=== PATIENT | female | born 1950 | race Caucasian/White ===

== ENCOUNTER 2024-08-02 06:25 | Day surgery (SDC) | payer MEDICARE, OTHER ==
[~2024-08-02] VITALS: Ht 163.8 cm; Wt 80.7 kg
[~2024-08-02 06:25] MED LIST: ACETAMINOPHEN-1 EAC1 PO; BENADRYL25 MG PO; DIFLUCAN100 MG PO; FISH OIL 1,0001 EAC6 PO; FLONASE ALLERG9.9 ML NAS; MIDAZOLAM HCL 5 MG/5 ML VIAL IV PRN; MIDAZOLAM HCL 5 MG/5 ML VIAL ONE; NUCYNTA50 MG PO; SUDAFED 12-HOU120 MG PO; TURMERIC500 MG PO; VITAMIN C100 MG PO; VITAMIN D250 MCG PO; ZYRTEC10 MG PO; fentaNYL citrate 100 MCG/2 ML VIAL IV PRN; fentaNYL citrate 100 MCG/2 ML VIAL ONE
[2024-08-02 06:41] VITALS: BP 137/66
[2024-08-02] MEDS ORDERED: OMEPRAZOLE20 MG PO (06:45)
[2024-08-02] MEDS ORDERED: CALCIUM500 M1 PO (06:45)
[2024-08-02] MEDS ORDERED: IMODIUM A-1 MG/7.5 M PO (06:45)
[2024-08-02] MEDS ORDERED: TYLENOL325 MG PO (06:45)
[2024-08-02] MEDS ORDERED: METROGEL60 GM TOP (06:46)
[2024-08-02] MEDS ORDERED: LACTATED RINGER'S 1,000 ML IV SCH (07:00)
[2024-08-02] MEDS ORDERED: IBLOOD GLUCOSE TEST STRIP 1 EA TEST VI PRN (07:00)
[2024-08-02] MEDS ORDERED: LIDOCAINE HCL 1% 5 ML SDV INJ ONE (07:00)
[2024-08-02] MEDS ORDERED: fentaNYL citrate 100 MCG/2 ML VIAL ONE (07:36)
[2024-08-02] MEDS ORDERED: MIDAZOLAM HCL 2 MG/2 ML VIAL ONE (07:36)
[2024-08-02 08:22] VITALS: BP 113/60
--- NOTE | 2024-08-03 07:23 | OR ---
[facility] [address] [place], [place] [address] Signed DATE OF OPERATION: 08/02/2024 SURGEON: Hiren Perales MD PREOPERATIVE DIAGNOSES: 1. Gastroesophageal reflux disease. 2. Possible tiny hiatal hernia. 3. Irritable bowel syndrome with diarrhea. 4. Diverticulosis. 5. Small polyp last retrieval in [address] age 68 [address] Clinton Newton. POSTOPERATIVE DIAGNOSES: 1. Mild diffuse gastritis. 2. Tiny hiatal hernia. 3. GE junction at 32 cm. 4. Mild melanosis coli. 5. Minimal sigmoid diverticulosis. 6. Long redundant colon. PROCEDURES: 1. Esophagogastroduodenoscopy with CLOtest and biopsies of the duodenum and antrum. 2. Colonoscopy with random cold biopsy x2. ESTIMATED BLOOD LOSS: None. INDICATIONS: Nohemi is a -[id number] female who I have known for quite some time. I helped her with both upper and lower endoscopy back in 2013 at the age of 62. She is known to have a little acid reflux and she is taking omeprazole as needed. She is now using the omeprazole on a daily basis. She feels that was a change. She probably has a very tiny hiatal hernia. Her CLOtest had been negative. Biopsies from the stomach were negative. She also had her initial screening colonoscopy at that same time. She had little diverticulosis. We asked her to follow up in 10 years. She was not feeling well and had been to [facility] back in 2019. There was some concern that she was backed up with stool. She had been referred to the local ultrasonic hand solderer Dr. Clinton Newton. He helped her with a colonoscopy at that time. He divided a small polyp with the snare and was lost to retrieval. He therefore asked her to follow up in 5 years. She still is describing some irritable bowel syndrome with loose stool and sometimes diarrhea. She has had a little Imodium once or twice a week, this is very helpful. Electronically Signed By: HIREN PERALES MD 08/03/24 0723 PATIENT NAME: NOHEMI MALONE OPERATIVE REPORT DATE OF : 54 REPORT #: [id number] PHYSICIAN: HIREN PERALES MD PCP: GUILHERME RIVAS MD REPORT IS CONFIDENTIAL AND NOT TO BE RELEASED WITHOUT AUTHORIZATION [facility] [address] [place] [id number] Signed There was some discussion about fatty liver in her notes. She gives no family history of colon cancer or polyps. She has no inflammatory bowel disease in the family. She remains quite healthy and active in her correction. She does like a few drinks each week in correction. In the office, I gave her a pamphlet on upper and lower endoscopy. We had discussed the nature of the two tests. There is risk including, but not limited to gas bloating, crampy abdominal pain, bleeding, perforation requiring surgery, and missed diagnosis. We also reviewed the written instructions for the bowel prep line by line. She actually recalls our bowel prep quite well. We also reviewed the need for IV conscious sedation. She has done well with Versed and fentanyl in the past. She had expressed understanding and wished to proceed. DESCRIPTION OF PROCEDURE: Nohemi was taken into our endoscopy suite and placed in the supine semi-recumbent position. The posterior oropharynx was anesthetized with Hurricaine spray. A bite block was utilized for the case. She was given a total of 11 mg of Versed and 200 mcg of fentanyl to cover both the upper and lower endoscopy. Unfortunately, she was frequently awake, looking around and moaning. I think in the future she definitely would benefit from monitored anesthesia care propofol infusion. The adult gastroscope had been introduced and advanced out into the duodenum under direct visualization of the camera without difficulty. We took a biopsy of the duodenum for the history of diarrhea. Otherwise, the duodenum and pyloric channel were quite healthy. Stomach again just showed very mild superficial diffuse erythematous changes. We went ahead and took a biopsy of the antrum for CLOtest as well as pathologic review. Upon retroflexion of the scope again she may have just a very tiny hiatal hernia. After this, the scope was withdrawn up through the area of the GE junction, which was compliant without stricture. We saw no gastric or esophageal varices. There was very minimal disruption to the Z-line. There was no Hopkins's mucosa. The Z-line is at 32 cm. There was no distal, middle or upper esophagitis. The gas had been suctioned out and the gastroscope removed. Her vocal cords and arytenoids were unremarkable. After this, the scope had been completely removed. Overall, Nohemi tolerated the procedure well. Nohemi was actually awake enough to turn into the left lateral decubitus position. She was given additional Versed and fentanyl. A digital rectal exam was performed. This was unremarkable. There were no external hemorrhoids. She has good sphincter tone. There were no masses. The adult colonoscope was introduced and advanced under direct visualization of camera. difficult to pass the scope, but she does have a long redundant colon. Even with additional Versed and fentanyl she was frequently awake and talking. Again in the future I think she would be much better served with propofol infusion. We made it around her cecum and her prep was quite excellent. We could easily see the appendiceal orifice and the ileocecal valve. The scope was slowly withdrawn. She has very mild diffuse tiger striping throughout her entire colon. We went and took a biopsy from the mid right colon for evaluation of melanosis coli. We Electronically Signed By: HIREN PERALES MD 08/03/24 0723 PATIENT NAME: NOHEMI MALONE OPERATIVE REPORT DATE OF : 54 REPORT #: [id number] PHYSICIAN: HIREN PERALES MD PCP: GUILHERME RIVAS MD REPORT IS CONFIDENTIAL AND NOT TO BE RELEASED WITHOUT AUTHORIZATION [facility] [address] [place], [place] [address] Signed took an additional biopsy near that for the history of diarrhea. She had no polyps in the colon. She had just a little bit of diverticula in the sigmoid colon. They were small to moderate in size, few in number and scattered about. The rectum was unremarkable. Upon retroflexion of scope we did not see any additional pathology above the anal canal. After this, the gas was suctioned out. The colonoscope removed. Nohemi tolerated the procedure quite well. RECOMMENDATIONS: I will see Nohemi back in my office in 7 to 14 days to review her results. They appear to be the same as what I reviewed previously. However, she did use a large amount of Versed and fentanyl and was still awake and moaning. I think in the future, she is much better served with monitored anesthesia care and propofol infusion. I will see Nohemi back in the office in 7 to 14 days to review her results. Hiren Perales MD ALB/MODL /[id number] cc: MD Hiren Zayas MD Copies: GUILHERME RIVAS MD, ANDREW L MD ~ Electronically Signed By: HIREN PERALES MD 08/03/24 0723 PATIENT NAME: NOHEMI MALONE OPERATIVE REPORT DATE OF : 54 REPORT #: [id number] PHYSICIAN: HIREN PERALES MD PCP: GUILHERME RIVAS MD REPORT IS CONFIDENTIAL AND NOT TO BE RELEASED WITHOUT AUTHORIZATION
--- NOTE | 2024-08-10 14:05 | PATH ---
[facility] [address] [place], [place] [address] Signed SPECIMEN(S): A DUODENAL BIOPSY SPECIMEN(S): B ANTRUM BIOPSY SPECIMEN(S): C CECUM BIOPSY SPECIMEN(S): D RANDOM COLON BIOPSY SPECIMEN SOURCE: A. DUODENAL BIOPSY B. ANTRUM BIOPSY C. CECUM BIOPSY D. RANDOM COLON BIOPSY CLINICAL HISTORY: History of GERD, hiatal hernia, polyps, diverticulosis, diarrhea. Post: Gastritis, history of diarrhea, long redundant colon, melanosis coli, diverticulosis. Rule out #3 biopsy for melanosis coli and #4 random biopsy for history of diarrhea FINAL PATHOLOGIC DIAGNOSIS: A. Duodenum, biopsy: - No significant histopathology. B. Stomach, antrum, biopsy: - No significant histopathologic alterations. C. Colon, cecum, biopsy: - Melanosis coli. D. Colon, random, biopsy: - Melanosis coli. COMMENT: A. The sections from the duodenal biopsy show portions of duodenal mucosa with long fingerlike villi. There is no villous atrophy, crypt hyperplasia or intraepithelial lymphocytosis making a diagnosis of celiac disease unlikely. There is no evidence of peptic duodenitis, microorganisms, abnormal infiltrates or neoplasia. B. The sections through the gastric biopsies show fragments of histologically unremarkable antral mucosa. There is no evidence of acute or chronic inflammation. There is no evidence of H. pylori, intestinal metaplasia, abnormal infiltrates or neoplasia. C, D. The sections through the biopsy show portions of mucosa with pigmented macrophages in the lamina propria. The changes are consistent with chronic laxative use. There is no evidence of neoplasia. PATIENT NAME: NOHEMI MALONE PATHOLOGY DATE OF : 54 REPORT #: [id number] PHYSICIAN: VISHNU HOLT PCP: GUILHERME RIVAS MD REPORT IS CONFIDENTIAL AND NOT TO BE RELEASED WITHOUT AUTHORIZATION [facility] [address] [place], [place] [address] Signed TWK MICROSCOPIC EXAMINATION: Histologic sections of all submitted blocks are examined by light microscopy. These findings, together with the gross examination, support the pathologic diagnosis. GROSS DESCRIPTION: A. The specimen, labeled and designated "Fouquette, V, duodenal biopsy," is received in formalin and consists of one wilkinson soft tissue fragment, 0.4 cm. Entirely submitted in (A1). B. The specimen, labeled and designated "Fouquette, V, antrum biopsy," is received in formalin and consists of one wilkinson soft tissue fragment, 0.3 cm. Entirely submitted in (B1). C. The specimen, labeled and designated "Fouquette, V, rectum biopsy rule out biopsy for melanosis coli," is received in formalin and consists of one wilkinson soft tissue fragment, 0.3 cm. Entirely submitted in (C1). D. The specimen, labeled and designated "Fouquette, V, random colon biopsy rule out random biopsy for history of diarrhea," is received in formalin and consists of one wilkinson soft tissue fragment, 0.4 cm. Entirely submitted in (D1). AB (under the direct supervision of a pathologist) The Gross Description was prepared using a voice recognition system. The report was reviewed for accuracy; however, sound-alike word errors, addition and/or deletions may occur. If there is any question about this report, please contact Client Services. ADDITIONAL NOTES: Immunohistochemical and/or in situ hybridization studies if performed in this case included appropriate positive controls that reacted as expected. This test was developed and its performance characteristics determined by [facility]. It has not been cleared or approved by the U.S. Food and Drug Administration. The FDA has determined that such clearance or approval is not necessary. This test is used for clinical purposes. It should not be regarded as investigational or for research. [facility] is certified under the Clinical Laboratory Improvement Amendments of 1988 (CLIA) as qualified to perform high complexity clinical laboratory testing. PATIENT NAME: NOHEMI MALONE PATHOLOGY DATE OF : 54 REPORT #: [id number] PHYSICIAN: JOHNNicholas Haddox Records PATHOLOGY PCP: GUILHERME RIVAS MD REPORT IS CONFIDENTIAL AND NOT TO BE RELEASED WITHOUT AUTHORIZATION [facility] [address] [place], [place] [address] Signed PERFORMING LABORATORY: Technical component was performed by [facility], [address] [place] [id number] (CLIA# [id number]). Professional interpretation was performed by [facility], [address] [place] [place] [place] [address] (CLIA#:[id number]). Diagnostician: Raúl Vital MD Pathologist Electronically Signed 08/10/2024 Copies: ~ PATIENT NAME: NOHEMI MALONE PATHOLOGY DATE OF : 54 REPORT #: [id number] PHYSICIAN: VISHNU PATHOLOGY PCP: GUILHERME RIVAS MD REPORT IS CONFIDENTIAL AND NOT TO BE RELEASED WITHOUT AUTHORIZATION
== END 2024-08-02 08:46 | disposition home or self-care (01) ==
LOC: DS 06:25 → DSVR 06:26 → DS 07:30
PROVIDERS: ATTEND Colon & Rectal Surgery
PROC: 0DBF8ZX Excision of Right Large Intestine, Via Natural or Artificial Opening Endoscopic, Diagnostic (ICD-10-PCS; 2024-08-02)
PROC: 0DB98ZX Excision of Duodenum, Via Natural or Artificial Opening Endoscopic, Diagnostic (ICD-10-PCS; principal; 2024-08-02 07:30)
PROC: 0DB68ZX Excision of Stomach, Via Natural or Artificial Opening Endoscopic, Diagnostic (ICD-10-PCS; 2024-08-02 07:30)
DX: K29.60 Other gastritis without bleeding (principal); K44.9 Diaphragmatic hernia without obstruction or gangrene; K57.30 Diverticulosis of large intestine without perforation or abscess without bleeding; K63.89 Other specified diseases of intestine; E78.5 Hyperlipidemia, unspecified; K58.9 Irritable bowel syndrome, unspecified; K76.0 Fatty (change of) liver, not elsewhere classified; E55.9 Vitamin D deficiency, unspecified; M85.80 Other specified disorders of bone density and structure, unspecified site; Z88.8 Allergy status to other drugs, medicaments and biological substances; Z79.899 Other long term (current) drug therapy; Z86.0100 Personal history of colon polyps, unspecified
CPT/HCPCS: 36415; 87077; 88305; 99153; G0500; J2250; J3010; J7121

== ENCOUNTER 2024-09-07 15:37 | Emergency (ER) | payer MEDICARE, OTHER ==
[~2024-09-07] VITALS: Ht 162.6 cm; Wt 81.2 kg
[~2024-09-07 15:37] MED LIST changes: +CALCIUM500 M1 PO; +IMODIUM A-1 MG/7.5 M PO; +METROGEL60 GM TOP; -MIDAZOLAM HCL 5 MG/5 ML VIAL IV PRN; -MIDAZOLAM HCL 5 MG/5 ML VIAL ONE; +OMEPRAZOLE20 MG PO; +TYLENOL325 MG PO; -fentaNYL citrate 100 MCG/2 ML VIAL IV PRN; -fentaNYL citrate 100 MCG/2 ML VIAL ONE
[2024-09-07] MEDS ORDERED: ASPIRIN 81 MG CHEW PO ONE (16:00)
[2024-09-07 16:37] LABS: BASOPHILS 3.9 % (0-2); EOSINOPHILS 2.1 % (0-6); HEMATOCRIT 42.4 % (35.0-50.0); HEMOGLOBIN 14.2 g/dL (12.0-18.0); LYMPHOCYTES 12.2 % (24-44); MCH 30.6 (27-36); MCHC 33.5 g/dl (30-36); MCV 91.4 fl (81-99); MONOCYTES 3.6 % (0-12); NEUTROPHILS 78.2 % (39-80); PLATELET COUNT 341 K/uL (140-440); RBC 4.64 M/ul (4.3-5.7); RDW 13.3 (10.5-15.0)
[2024-09-07 16:52] LABS: ALBUMIN 4.1 g/dL (3.4-5.0); ALBUMIN/GLOBULIN RATIO 1.21 (1.1-2.4); ALKALINE PHOSPHATASE 90 U/L (46-116); ALT (SGPT) 50 U/L (14-59); ANION GAP 15.7 (7-21); AST (SGOT) 29 U/L (15-37); BILIRUBIN, TOTAL 0.3 ng/dL (0.2-1.0); BUN/CREATININE RATIO 30.86 (6.0-28.6); CALCIUM 9.4 mg/dL (8.5-10.1); CARBON DIOXIDE 26 mmol/L (21-32); CHLORIDE 105 mmol/L (98-107); CREATININE, SERUM 0.81 mg/dL (0.55-1.02); GLOMERULAR FILTRATION RATE,EST 77 mL/min (>60); MAGNESIUM 2.1 mg/dL (1.8-2.4); POTASSIUM 3.7 mmol/L (3.5-5.1); PROTEIN, TOTAL 7.5 g/dL (6.4-8.2); UREA NITROGEN 25 mg/dL (7-18)
[2024-09-07 18:46] VITALS: BP 153/72
--- NOTE | 2024-09-07 20:38 | EKG ---
[facility] [address] [facility] [place], [place] [address] Signed Normal sinus rhythm Left axis deviation Cannot rule out Anterior infarct , age undetermined Abnormal ECG No previous ECGs available Confirmed by Artie Lofton DO ([id number]) on 09/07/2024 8:37:49 PM Electronically Signed By: ARTIE LOFTON DO 09/07/242037 PATIENT NAME: NOHEMI MALONE LEO Electrocardiogram DATE OF : 54 PHYSICIAN: ARTIE LOFTON DO REPORT #: [id number] REPORT IS CONFIDENTIAL AND NOT TO BE RELEASED WITHOUT AUTHORIZATION
== END 2024-09-07 18:42 | disposition home or self-care (01) ==
LOC: ED 15:37
PROVIDERS: Emergency Medicine
DX: R07.89 Other chest pain (principal); R73.03 Prediabetes; Z87.891 Personal history of nicotine dependence; Z88.5 Allergy status to narcotic agent; Z79.899 Other long term (current) drug therapy
CPT/HCPCS: 36415; 71045; 80053; 83735; 84484; 85025; 93005; 93010; 99285-25; A9270

== ENCOUNTER 2025-08-14 12:20 | Emergency (ER) | payer MEDICARE, OTHER ==
[~2025-08-14] VITALS: Ht 162.6 cm; Wt 73.0 kg
[2025-08-14] MEDS ORDERED: SODIUM CHLORIDE 0.9% 1,000 ML IV PRN (13:45)
[2025-08-14] MEDS ORDERED: PROCHLORPERAZINE EDISYLATE 10 MG/2 ML VIAL IV ONE (13:45)
[2025-08-14 14:00] LABS: BASOPHILS 0.4 % (0.1-1.2); EOSINOPHILS 0.3 % (0.7-5.8); LYMPHOCYTES 18.3 % (19.3-51.7); MCH 30.3 PG (25.6-32.2); MCHC 33.8 g/dL (32.2-35.5); MCV 89.8 fL (79.4-94.8); MONOCYTES 4.8 % (4.7-12.5); NEUTROPHILS 75.9 % (34.0-71.1); RBC 4.88 M/uL (3.93-5.22)
[2025-08-14 14:23] LABS: ALT (SGPT) 43.0 U/L (14-59); AST (SGOT) 32.0 U/L (15-37); GLOMERULAR FILTRATION RATE,EST 79.0 mL/min (>60); PROTEIN, TOTAL 7.3 g/dL (6.4-8.2); UREA NITROGEN 15.0 mg/dL (7-18)
[2025-08-14] MEDS ORDERED: TRANSDERM-SCOP1 EACH TD (15:50)
[2025-08-14] MEDS ORDERED: MECLIZINE HCL25 MG PO (15:51)
[2025-08-14] MEDS ORDERED: SCOPOLAMINE 1 MG/3 DAYS PATCH 1 EACH TDSY TD ONE (16:15)
[2025-08-14] MEDS ORDERED: MECLIZINE HCL 25 MG TAB PO ONE (16:15)
[2025-08-14 16:20] VITALS: BP 146/76
[2025-08-17] MEDS ORDERED: SCOPOLAMINE 1 MG/3 DAYS PATCH 1 EACH TDSY TD SCH (09:00)
== END 2025-08-14 16:22 | disposition home or self-care (01) ==
LOC: ED 12:20
PROVIDERS: Emergency Medicine
DX: R42 Dizziness and giddiness (principal); Z79.899 Other long term (current) drug therapy; Z88.1 Allergy status to other antibiotic agents; Z88.5 Allergy status to narcotic agent; Z87.891 Personal history of nicotine dependence
CPT/HCPCS: 36415; 80053; 85025; 96374; 96375; 99284-25; A9270; J0780; J1200; J7030